=== PATIENT | female | born 1985 | race Caucasian/White ===

== ENCOUNTER → 2017-03-01 | Outpatient (CLI) | payer BC ==
[~2017-03-01] MED LIST: CALC200T PO; FERR325T51 PO; ONDA4TAB7 SL; PANT40TA PO; PRENTAB26 PO
[2017-03-01 10:04] LABS: BASO ABS # 0.04 K/uL (0-0.2); COMPLETE YES; EOS % 10.2 %; HEMATOCRIT 38.1 % (37-47); IG% 0.3 %; LYMPH % 39.3 %; MEAN CORPUSCULAR HGB CONC 32.5 g/dl (32-36); MEAN PLATELET VOLUME 8.7 fL (7.4-10.4); MONO % 8.4 %; NEUT % 40.8 %; PLATELET COUNT 173 K/uL (130-400); RED BLOOD COUNT 4.28 M/uL (4.2-5.4); WHITE BLOOD COUNT 3.82 K/uL (4.8-10.8)
[2017-03-01 10:35] LABS: ALT/SGPT 19 U/L (12-78); AST/SGOT 13 U/L (15-37); BLOOD UREA NITROGEN 17 mg/dl (7-18); BUN/CREATININE RATIO 23.2 (10-20); CARBON DIOXIDE 28 mmol/L (21-32); CHLORIDE 106 mmol/L (98-107); CREATININE 0.73 mg/dl (0.60-1.20); GLUCOSE 73 mg/dl (70-99); MAGNESIUM 2.1 mg/dl (1.8-2.4); POTASSIUM 4.1 mmol/L (3.5-5.1); SODIUM 140 mmol/L (136-145)
[2017-03-01 10:38] LABS: ALB/GLOB RATIO 1.2 (0.9-2); ALKALINE PHOSPHATASE 52 U/L (45-117); FERRITIN 8.3 ng/ml (8.0-388.0); TOTAL IRON BINDING CAPACITY 394 mcg/dl (250-450)
== END | disposition home or self-care (01) ==
LOC: C.LAB1850 09:03
PROVIDERS: ATTEND Registered Nurse
DX: E61.1 Iron deficiency (principal); K90.0 Celiac disease

== ENCOUNTER → 2017-03-04 | Day surgery (SDC) | payer BC ==
[2017-03-03 13:05] VITALS: Ht 172.7 cm; Wt 64.5 kg
[~2017-03-04] VITALS: Ht 172.7 cm; Wt 64.5 kg
[~2017-03-04] MED LIST changes: +LIDOCAINE HCL 2% 2 ML VIAL (20MG/ML) ONE; -ONDA4TAB7 SL; +PHENYLEPHRINE HCL INJ 10 MG/ML VIAL ONE; -PRENTAB26 PO; +PROPOFOL IV EMULSION 10 MG/ML 20 ML VIAL IV ONE
--- NOTE | 2017-03-04 15:25 | Endo History and Physical ---
History & Physical Date of Service: Mar 04, 2017. Chief Complaint: ANEMIA Referring Physician: DR AMES History of Present Illness 31 yo CF who presents for EGD secondary to anemia. Past Surgical History Hx Cardiac Surgery: No Hx Internal Defibrillator: No Hx Pacemaker: No Hx Abdominal Surgery: Yes (APPY) Hx of Implantable Prosthesis: No Hx Post-Op Nausea and Vomiting: No Hx Cancer Surgery: No Hx Thoracic Surgery: No Hx Orthopedic: No Hx Urinary Tract Surgery: No Family History IBD Social History Smoking Status: Never Smoker Hx Substance Use: No Hx Alcohol Use: No Allergies Coded Allergies: Clindamycin (Verified Allergy, Intermediate, rash, 03/04/17) Penicillins (Verified Allergy, Mild, HIVES, 03/04/17) Gluten (Verified Allergy, Unknown, celiacs, 03/04/17) Sulfa Antibiotics (Verified Adverse Reaction, Unknown, WEAKNESS, 03/04/17) Current Medications Reported Home Medications Medications Dose Route/Sig Max Daily Dose Days Date Category Iron Supplement (Ferrous Sulfate) 325 Mg Tab 1 Tab PO QPM 04/08/15 Reported Protonix (Pantoprazole Sodium) 40 Mg Tab 40 Mg PO QAM 03/22/13 Reported Oscal 500/200 D-3 (Calcium Carbonate-Vitamin D) 1 Tab Tab 1 Tablet PO QAM 03/22/13 Reported Vital Signs Weight (Kilograms): 64.55 Height (Feet): 5 Height (Inches): 8 Date Time Temp Pulse Resp B/P (MAP) Pulse Ox O2 Delivery O2 Flow Rate FiO2 03/04/17 14:36 36.8 85 18 107/67 (80) 99 Room Air Physical Exam General Appearance: WD/WN, no apparent distress Respiratory/Chest: Auscultation: breath sounds normal Cardiovascular: Heart Auscultation: RRR Abdomen: Bowel Sounds: normal Inspection & Palpation: soft, non-distended, no tenderness, guarding & rebound Assessment and Plan Assessment: 31 yo CF who presents for EGD secondary to anemia. Plan: Proceed with EGD.
--- NOTE | 2017-03-04 16:31 | Anesthesiology Progress Note ---
Anesthesia Post Op Note Date & Time Mar 04, 2017 at 16:30 Vital Signs Pain Intensity: 0 Vital Signs Past 12 Hours Date Time Temp Pulse Resp B/P (MAP) Pulse Ox O2 Delivery O2 Flow Rate FiO2 03/04/17 16:15 88 18 96/58 (71) 97 Room Air 03/04/17 16:12 84 79/59 (66) 03/04/17 16:10 101 18 86/54 (65) 95 Room Air 03/04/17 14:36 36.8 85 18 107/67 (80) 99 Room Air Notes Mental Status: alert / awake / arousable, participated in evaluation Pt Amnestic to Procedure: Yes Nausea / Vomiting: adequately controlled Pain: adequately controlled Airway Patency, RR, SpO2: stable & adequate BP & HR: stable & adequate Hydration State: stable & adequate Anesthetic Complications: no major complications apparent
--- NOTE | 2017-03-04 16:37 | GI REPORT ---
Procedure Date: 03/04/2017 3:24 PM Procedure: Upper GI endoscopy Indications: Iron deficiency anemia Medicines: Monitored Anesthesia Care Complications: No immediate complications. Estimated Blood Loss: Estimated blood loss: none. Procedure: Pre-Anesthesia Assessment: - Prior to the procedure, a History and Physical was performed, and patient medications and allergies were reviewed. The patient's tolerance of previous anesthesia was also reviewed. The risks and benefits of the procedure and the sedation options and risks were discussed with the patient. All questions were answered, and informed consent was obtained. Prior Anticoagulants: The patient has taken no previous anticoagulant or antiplatelet agents. ASA Grade Assessment: II - A patient with mild systemic disease. After reviewing the risks and benefits, the patient was deemed in satisfactory condition to undergo the procedure. After obtaining informed consent, the endoscope was passed under direct vision. Throughout the procedure, the patient's blood pressure, pulse, and oxygen saturations were monitored continuously. The scope was introduced through the mouth, and advanced to the second part of duodenum. The upper GI endoscopy was accomplished without difficulty. The patient tolerated the procedure well. Findings: The esophagus was normal. The gastric antrum was normal. Biopsies were taken with a cold forceps for histology. One non-bleeding superficial duodenal ulcer with no stigmata of bleeding was found in the duodenal bulb. The lesion was 1 mm in largest dimension. Biopsies for histology were taken with a cold forceps in the 2nd part of the duodenum for evaluation of celiac disease. Impression: - Normal esophagus. - Normal antrum. Biopsied. - One non-bleeding duodenal ulcer with no stigmata of bleeding. - Biopsies were taken with a cold forceps for evaluation of celiac disease. Recommendation: - Resume previous diet. - Continue present medications. - Await pathology results. - Return to GI office as previously scheduled. Terrell Horne DO 03/04/2017 4:36:17 PM This report has been signed electronically. Note Initiated On: 03/04/2017 3:24 PM I attest to the content of the Intraoperative Record and orders documented therein, exceptions below
[2017-03-04 16:45] VITALS: BP 101/63; PULSE 80; O2SAT 98
--- NOTE | 2017-03-04 16:46 | Discharge Instructions ---
Endoscopy Patient Instructions Date / Procedure(s) Performed Mar 04, 2017. EGD Allergy Information Coded Allergies: Clindamycin (Verified Allergy, Intermediate, rash, 03/04/17) Penicillins (Verified Allergy, Mild, HIVES, 03/04/17) Gluten (Verified Allergy, Unknown, celiacs, 03/04/17) Sulfa Antibiotics (Verified Adverse Reaction, Unknown, WEAKNESS, 03/04/17) Discharge Date / Findings Mar 04, 2017. Duodenal ulcer Duodenal biopsies Gastric antrum biopsies Medication Instructions OK to resume all medications today as prescribed Reported Home Medications Medications Dose Route/Sig Max Daily Dose Days Date Category Iron Supplement (Ferrous Sulfate) 325 Mg Tab 1 Tab PO QPM 04/08/15 Reported Protonix (Pantoprazole Sodium) 40 Mg Tab 40 Mg PO QAM 03/22/13 Reported Oscal 500/200 D-3 (Calcium Carbonate-Vitamin D) 1 Tab Tab 1 Tablet PO QAM 03/22/13 Reported Provider Instructions Activity Restrictions - No exercising or heavy lifting for 24 hours. - Do not drink alcohol the day of the procedure. - Do not drive a car or operate machinery until the day after the procedure. - Do not make any important decisions or sign important papers in 24 hours after the procedure. Following Day: - Return to full activity which may include returning to work/school. Diet Start your diet with liquids and light foods (jello, soup, juice, toast). Then eat your usual diet if not nauseated. Treatment For Common After Affects For mild abdominal pain, bloating, or excessive gas: - Rest - Eat lightly - Lie on right side Follow-Up Information Follow-up with DR AMES as scheduled Anesthesia Information What You Should Know You have had a procedure that required some medicine to reduce anxiety and discomfort. This treatment is called moderate sedation. After receiving the treatment, you may be sleepy, but you will be able to breathe on your own. The effects of the treatment may last for several hours. Follow these instructions along with Activity/Diet recommendations noted above: * Do NOT do anything where dizziness or clumsiness would be dangerous. * Rest quietly at home today, then you can be up and about tomorrow. * Have a responsible person stay with you the rest of today. * You may have had an I.V. today. If so, you may take the dressing off later today. Recommendations Call your doctor if: * Trouble breathing * Continuous vomiting for more than 24 hours * Temperature above 101 degrees * Severe abdominal pain or bloating * Pain not relieved by pain medicine ordered * There is increased drainage or redness from any incision * A large amount of rectal bleeding greater than 2-3 tablespoons. (If you had a polyp/s removed or have hemorrhoids, a small amount of blood - from the rectum is to be expected.) * You have any unanswered questions or concerns. IN THE EVENT OF A SERIOUS EMERGENCY, GO TO THE NEAREST EMERGENCY ROOM Your discharge instructions were prepared by provider Terrell Horne. Patient Instructions Signature Page Perla Joss Patient (or Guardian) Signature/Date: I have read and understand the instructions given to me by my caregivers. Caregiver/RN/Doctor Signature/Date: The above-named patient and/or guardian has received patient instructions on this date. + Original Patient Signature Page (only) stays with chart. Please make copy for patient.
== END | disposition home or self-care (01) ==
LOC: C.GI 14:18
PROVIDERS: ATTEND Internal Medicine
DX: D50.9 Iron deficiency anemia, unspecified (principal); K26.9 Duodenal ulcer, unspecified as acute or chronic, without hemorrhage or perforation; K29.50 Unspecified chronic gastritis without bleeding; Z90.49 Acquired absence of other specified parts of digestive tract